=== PATIENT | female | born 1945 | race Caucasian/White ===

== ENCOUNTER 2016-08-08 12:56 | Emergency (ER) | payer OTHER, BC ==
[~2016-08-08] VITALS: Ht 162.6 cm; Wt 62.0 kg
[2016-08-08 15:45] LABS: ADD MIUA? YES; BILIRUBIN NEGATIVE; BLOOD SMALL; COLOR STRAW ((YELLOW)); GLUCOSE (STRIP) NEGATIVE; KETONES 5; LEUKOCYTES NEGATIVE; NITRITE NEGATIVE; PROTEIN (STRIP) NEGATIVE; SPECIFIC GRAVITY 1.005 (1.000-1.030); UROBILINOGEN 0.2 MG/DL (0.2-1.0)
[2016-08-08 15:55] LABS: BACTERIA RARE /HPF; EPITHELIAL CELLS NONE SEEN /HPF; MUCUS NONE SEEN /LPF; RED BLOOD CELLS 0-5 /HPF (0-5); UCUL ADDED? NO; WHITE BLOOD CELLS 0-5 /HPF (0-5)
[2016-08-08 16:03] LABS: MCH 29.1 PG (29.0-34.0); MCHC 33.8 G/DL (30.0-36.0); MEAN PLAT.VOLUME 9.9 uM^3 (9.5-12.4); PLATELET COUNT 198 K/uL (156-360); RBC DIS.WIDTH-CV 12.9 % (11.8-14.6); RBC DIS.WIDTH-SD 39.8 % (39-53); WHITE BLOOD COUNT 5.3 K/uL (4.1-10.2)
[2016-08-08 16:17] LABS: INFLUENZA A VIRAL ANTIGEN NEGATIVE; INFLUENZA B VIRAL ANTIGEN NEGATIVE
[2016-08-08 16:20] LABS: CHLORIDE 106 mEq/L (99-109); POTASSIUM 3.9 mEq/L (3.7-5.4); SODIUM 142 mEq/L (136-147)
[2016-08-08 16:21] LABS: GLUCOSE 86 mg/dL (70-99)
[2016-08-08 16:23] LABS: ANION GAP 10 MEQ/L (2-14)
[2016-08-08 16:25] LABS: GFR ESTIMATE (CALCULATED) > 59 mL/min/
[2016-08-08 16:26] LABS: UREA NITROGEN (BUN) 13 mg/dL (9-23)
[2016-08-08 16:31] LABS: TROP-I INTERPRETATION NEGATIVE; TROPONIN-I < 0.01 ng/mL (0.0-0.30)
[2016-08-08 19:36] VITALS: BP 151/103
== END 2016-08-08 19:37 | disposition home or self-care (01) ==
LOC: EME 12:56
PROVIDERS: Physician Assistant
DX: R42 Dizziness and giddiness (principal); R51 Headache
CPT/HCPCS: 70450; 71020; 80048; 81003; 84484; 85027; 87502; 93005; 99281; 99284